=== PATIENT | male | born 1980 | race African-American/Black ===

== ENCOUNTER 2016-09-11 14:56 | Emergency (ER) | payer OTHER ==
[~2016-09-11] VITALS: Ht 177.8 cm; Wt 100.5 kg
[~2016-09-11 14:56] MED LIST: IBUP-988 PO; IBUP800T23 PO; PREV30CA11 PO; ROBA750T PO
[2016-09-11 15:00] VITALS: BP 127/77; PULSE 78; RESP 18; TEMP 99.5; O2SAT 99
[2016-09-11 16:08] VITALS: BP 123/78; PULSE 73; RESP 18; O2SAT 98
--- NOTE | 2016-09-11 16:20 | PD ---
HPI Chief Complaint: Dizziness Time Seen by Provider: 16:03 Travel History International Travel<30 days: No Contact w/Intl Traveler<30days: No Traveled to known affect area: No History of Present Illness HPI Patient is a 36-year-old male presents emergency department for evaluation of dizziness. Patient states he was moving some boxes around at work bent over and then he felt like the room was spinning. He does state that he felt a little bit weak like he might feel faint states he got no near blackout. He states he wasn't going to come and somebody recommended work that he come in to be evaluated. Denies any chest pain shortness of breath history of GI bleeding or previous symptoms in the past. Patient states he didn't have any breakfast or lunch today and thinks this may be part of it, he states after drinking some Gatorade he is feeling better. PFSH Past Medical History Medical History: Denies Significant Hx Diminished Hearing: No Past Surgical History Surgical History: No Previous Surgery Social History Alcohol Use: No Tobacco Use: No (QUIT 2007) Substance Use: No Allergies-Medications (Allergen,Severity, Reaction): Coded Allergies: Bactrim (Unverified Adverse Reaction, Severe, 09/11/16) N/V Reported Meds & Prescriptions Reported Meds & Active Scripts Active Ibuprofen 800 Mg Tab 800 Mg PO Q8H PRN Robaxin (Methocarbamol) 750 Mg Tab 750 Mg PO Q8HR Reported Prevacid (Lansoprazole) 30 Mg Capdr 30 Mg PO DAILY Review of Systems Except as stated in HPI: all other systems reviewed are Neg Physical Exam Narrative GENERAL: Well-nourished, well-developed patient. In no distress. SKIN: Focused skin assessment warm/dry. HEAD: Normocephalic. Atraumatic. EYES: No scleral icterus. No injection or drainage. ENT, TMs clear bilaterally, oropharynx clear and moist, ear canals normal. NECK: Supple, trachea midline. No JVD or lymphadenopathy. CARDIOVASCULAR: Regular rate and rhythm without murmurs, gallops, or rubs. RESPIRATORY: Breath sounds equal bilaterally. No accessory muscle use. GASTROINTESTINAL: Abdomen soft, non-tender, nondistended. MUSCULOSKELETAL: No cyanosis, or edema. NEUROLOGICAL: Well-nourished 2 through 12 grossly intact nonfocal, 5 out of 5 strength in all 4 extremities, cerebellar testing negative. Amylase with an even narrow based gait. BACK: Nontender without obvious deformity. No CVA tenderness. Data Data Last Documented VS Vital Signs Date Time Temp Pulse Resp B/P Pulse Ox O2 Delivery O2 Flow Rate FiO2 09/11/16 17:36 65 19 153/68 99 09/11/16 16:08 Room Air 09/11/16 15:00 99.5 Orders Electrocardiogram (09/11/16 ) Bedside Glucose ZAIDA.AC&HS (09/11/16 16:29) MDM Medical Decision Making Medical Screen Exam Complete: Yes Emergency Medical Condition: Yes Differential Diagnosis Vertigo, vertiginous episode, labyrinthitis, cerebellar stroke highly unlikely, central vertigo unlikely, anemia unlikely, electro-light abnormality unlikely, hypoglycemia Narrative Course Patient roomed emerged permit, and EKG was obtained which shows no abnormality, blood glucose within normal limits. Patient is feeling well. Discussed likely this is a vertiginous episode coupled with mild hypoglycemic episode this morning. Discussed eating in the morning prior to work. He is stable for discharge at this time. Discussed return to ED criteria and affect is persist can come back for further testing. Diagnosis Primary Impression: Dizziness Disposition: 01 DISCHARGE HOME Condition: Stable Guillermo Bradshaw MD Sep 11, 2016 16:20
[2016-09-11 17:36] VITALS: BP 153/68
--- NOTE | 2016-09-12 15:25 | EKG ---
Date Performed: 09/11/2016 Time Performed: 16:39:51 PTAGE: 36 years EKG: Sinus rhythm WITH FIRST DEGREE AV BLOCK NONSPECIFIC ST ELEVATION ABNORMAL ECG NO PREVIOUS TRACING DOCTOR: Anne Torrez Interpretating Date/Time 09/12/2016 15:22:45
== END 2016-09-11 17:37 | disposition home or self-care (01) ==
LOC: NEPD 14:56
DX: R42 Dizziness and giddiness (principal); R53.1 Weakness; I44.0 Atrioventricular block, first degree; R94.31 Abnormal electrocardiogram [ECG] [EKG]; Z79.899 Other long term (current) drug therapy; Z87.891 Personal history of nicotine dependence
CPT/HCPCS: 93005; 99283

== ENCOUNTER 2017-06-01 19:11 | Emergency (ER) | payer SELFPAY ==
[~2017-06-01] VITALS: Ht 180.3 cm; Wt 98.0 kg
[~2017-06-01 19:11] MED LIST changes: -IBUP-988 PO; +IBUP1TAB7 PO; -IBUP800T23 PO; -PREV30CA11 PO; +PREV30CA36 PO
[2017-06-01 19:20] VITALS: BP 117/73; PULSE 81; RESP 18; TEMP 98.4; O2SAT 97
[2017-06-01] MEDS ORDERED: NAPROXEN 500 MG TAB PO ONE (21:15)
--- NOTE | 2017-06-01 21:15 | PD ---
HPI Chief Complaint: Injury Time Seen by Provider: 20:43 Travel History International Travel<30 days: No Contact w/Intl Traveler<30days: No Traveled to known affect area: No History of Present Illness HPI 37-year-old right-hand dominant black male presents emergency department with complaints of left shoulder pain after injury he sustained at work today. 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 Patient states that he had bruised his forearm and injured his left shoulder. He denies injury to his head, neck or back. No numbness, tingling. He denies being struck. He states that he feels that he may have "pulled my shoulder". Pain is mild to moderate. Worse with movement. Some relief with remaining still holding it against his body. He is up-to-date with immunizations. [facility] Past Medical History Medical History: Denies Significant Hx Diminished Hearing: No Immunizations Current: Yes Tetanus Vaccination: < 5 Years Past Surgical History Surgical History: No Previous Surgery Social History Alcohol Use: No Tobacco Use: No (QUIT 2007) Substance Use: No Allergies-Medications (Allergen,Severity, Reaction): Coded Allergies: Penicillins (Verified Allergy, Severe, 06/01/17) sulfamethoxazole (Unverified Adverse Reaction, Severe, 06/01/17) N/V trimethoprim (Unverified Adverse Reaction, Severe, 06/01/17) N/V Reported Meds & Prescriptions Reported Meds & Active Scripts Active Review of Systems Except as stated in HPI: all other systems reviewed are Neg Physical Exam Narrative GENERAL: Well-developed, well-nourished in no acute distress. Nontoxic appearing. HEAD: Normocephalic, atraumatic. EYES: Pupils equal round and reactive. Extraocular motions intact. No scleral icterus. No injection or drainage. ENT: TMs clear without erythema. The external auditory canals clear. Nose: clear . Posterior pharynx is pink and moist. No tonsillar edema or exudate. Uvula midline. Airway patent. NECK: Trachea midline.Supple, nontender, moves head freely. No central bony tenderness or spasm. CARDIOVASCULAR: Regular rate and rhythm without murmurs, gallops, or rubs. RESPIRATORY: Clear to auscultation. Breath sounds equal bilaterally. No wheezes , rales, or rhonchi. GASTROINTESTINAL: Abdomen soft, non-tender, nondistended. No hepato-splenomegaly , or palpable masses. No guarding. EXTREMITIES: No clubbing, cyanosis, or edema. Examination of the left upper extremity reveals diffuse tenderness in the glenohumeral joint. He has limited extension over the head due to pain. He is able to raise his arm up at 90. Negative drop test. There is no erythema, warmth or obvious joint effusion. No pain along the clavicle. No pain in the elbow, wrist or hand. He has intact sensation with good distal pulses. Intact median/ulnar/radial nerves. The right upper extremity as well as lower extremities are unremarkable. He has an abrasion over the volar left forearm. No suturable laceration. BACK: Nontender without deformity or crepitance. No flank tenderness. Data Data Last Documented VS Vital Signs Date Time Temp Pulse Resp B/P (MAP) Pulse Ox O2 Delivery O2 Flow Rate FiO2 06/01/17 19:20 98.4 81 18 117/73 (88) 97 Orders Orders Shoulder, Limited(2vws) (06/01/17 21:01) Ice/Cold Pack (06/01/17 21:01) Naproxen (Naprosyn) (06/01/17 21:15) Splint Or Brace Apply/Monitor (06/01/17 21:01) [facility] Medical Decision Making Medical Screen Exam Complete: Yes Emergency Medical Condition: Yes Medical Record Reviewed: Yes Interpretation(s) Left shoulder: Negative for acute fracture. No dislocation. Differential Diagnosis MDM: High Differential diagnoses: Fracture, sprain, strain, dislocation, contusion, neurovascular injury Narrative Course Patient sustained an abrasion to left forearm as well as an injury to his left shoulder. I suspect this is a left shoulder sprain. Patient is given a sling and Naprosyn 500 mg p.o. Ice pack applied. Diagnosis Primary Impression: Left shoulder sprain Additional Impression: Left forearm abrasion Patient Instructions: General Instructions Departure Forms: Tests/Procedures, Work Release Special Instructions: No use of the left arm 3 days. Additional Instructions: Rest. Ice for the next 3 days followed by heat . Sling. Voltaren. Follow-up with a primary care doctor in 3-5 days. Return to the ER for emergencies. Light-duty 3 days. Med/Other Pt SpecificInfo: Prescription(s) given Disposition: 01 DISCHARGE HOME Condition: Stable Ghulam Gray Jun 01, 2017 21:15
[2017-06-01] MEDS ORDERED: DICL75TA PO (21:16)
--- NOTE | 2017-06-01 21:24 | RADRPT ---
EXAM DATE/TIME: 06/01/2017 21:13 [place] COMPARISON: No previous studies available for comparison. INDICATIONS : Left shoulder pain, fell MEDICAL HISTORY : None. SURGICAL HISTORY : None. ENCOUNTER: Initial ACUITY: 1 day PAIN SCORE: 8/10 LOCATION: Left Shoulder FINDINGS: Two view examination of the left shoulder demonstrates no evidence of fracture or dislocation. The g lenohumeral and acromioclavicular joints are maintained. Bony mineralization is normal. CONCLUSION: Intact left shoulder. Jevon Cabral MD on June 01, 2017 at 21:21 Board Certified Radiologist. This report was verified electronically.
[2017-06-01] MEDS ORDERED: ACETAMINOPHEN/HYDROcodone 325 MG/5 MG TAB PO ONE (21:45)
== END 2017-06-01 21:54 | disposition home or self-care (01) ==
LOC: NEPD 19:11
DX: S43.402A Unspecified sprain of left shoulder joint, initial encounter (principal); S50.812A Abrasion of left forearm, initial encounter; X58.XXXA Exposure to other specified factors, initial encounter
CPT/HCPCS: 73030; 99283